=== PATIENT | male | born 1955 | race Caucasian/White ===

== ENCOUNTER → 2019-02-18 10:48 | Outpatient (BNVA) | payer MEDICARE, SELFPAY | PROVIDERS: Family Provider Family Medicine; PCP Family Medicine; Visit Provider Family Medicine | DX: F31.62 Bipolar disorder, current episode mixed, moderate (principal); E78.5 Hyperlipidemia, unspecified | CPT/HCPCS: 80053; 80061; 80164 ==

== ENCOUNTER → 2020-05-20 09:29 | Outpatient (BNVA) | payer MEDICARE, SELFPAY | PROVIDERS: Family Provider Family Medicine; PCP Family Medicine; Visit Provider Psychiatry & Neurology Psychiatry | DX: F43.10 Post-traumatic stress disorder, unspecified (principal); F39 Unspecified mood [affective] disorder; Z79.899 Other long term (current) drug therapy | CPT/HCPCS: 90792 ==

== ENCOUNTER → 2020-05-21 13:08 | Outpatient (BNVA) | payer MEDICARE, SELFPAY | PROVIDERS: Family Provider Family Medicine; PCP Family Medicine; Visit Provider Psychiatry & Neurology Psychiatry | DX: Z79.899 Other long term (current) drug therapy (principal) | CPT/HCPCS: 80053; 80061; 80164; 83036; 84443 ==

== ENCOUNTER → 2020-06-24 12:56 | Outpatient (BNVA) | payer MEDICARE, SELFPAY | PROVIDERS: Family Provider Family Medicine; PCP Family Medicine; Visit Provider Psychiatry & Neurology Psychiatry | DX: F39 Unspecified mood [affective] disorder (principal); F43.10 Post-traumatic stress disorder, unspecified | CPT/HCPCS: 99214 ==

== ENCOUNTER → 2020-08-12 13:16 | Outpatient (BNVA) | payer MEDICARE, SELFPAY | PROVIDERS: Family Provider Family Medicine; PCP Family Medicine; Visit Provider Psychiatry & Neurology Psychiatry | DX: F43.10 Post-traumatic stress disorder, unspecified (principal); F39 Unspecified mood [affective] disorder | CPT/HCPCS: 99214 ==

== ENCOUNTER → 2020-09-23 14:55 | Outpatient (BNVA) | payer MEDICARE, SELFPAY | PROVIDERS: Family Provider Family Medicine; PCP Family Medicine; Visit Provider Psychiatry & Neurology Psychiatry | DX: F31.81 Bipolar II disorder (principal); F43.10 Post-traumatic stress disorder, unspecified; F39 Unspecified mood [affective] disorder | CPT/HCPCS: 99214 ==

== ENCOUNTER → 2020-10-21 10:01 | Outpatient (BNVA) | payer MEDICARE, SELFPAY | PROVIDERS: Family Provider Family Medicine; PCP Family Medicine; Visit Provider Psychiatry & Neurology Psychiatry | DX: F43.10 Post-traumatic stress disorder, unspecified (principal); F39 Unspecified mood [affective] disorder | CPT/HCPCS: 99214 ==

== ENCOUNTER → 2020-12-23 08:33 | Outpatient (BNVA) | payer MEDICARE, SELFPAY | PROVIDERS: Family Provider Family Medicine; PCP Family Medicine; Visit Provider Psychiatry & Neurology Psychiatry | DX: F31.81 Bipolar II disorder (principal); F43.10 Post-traumatic stress disorder, unspecified; F39 Unspecified mood [affective] disorder | CPT/HCPCS: 99214 ==

== ENCOUNTER → 2021-02-25 09:13 | Outpatient (BNVA) | payer MEDICARE, SELFPAY | PROVIDERS: Family Provider Family Medicine; PCP Family Medicine; Visit Provider Psychiatry & Neurology Psychiatry | DX: F31.81 Bipolar II disorder (principal); F31.62 Bipolar disorder, current episode mixed, moderate; F43.10 Post-traumatic stress disorder, unspecified; F39 Unspecified mood [affective] disorder | CPT/HCPCS: 99214 ==

== ENCOUNTER → 2021-04-29 11:17 | Outpatient (BNVA) | payer MEDICARE, SELFPAY | PROVIDERS: Family Provider Family Medicine; PCP Family Medicine; Visit Provider Psychiatry & Neurology Psychiatry | DX: F31.81 Bipolar II disorder (principal); F43.10 Post-traumatic stress disorder, unspecified; F39 Unspecified mood [affective] disorder | CPT/HCPCS: 99214 ==

== ENCOUNTER → 2021-06-07 12:58 | Outpatient (BNVA) | payer MEDICARE, SELFPAY | PROVIDERS: Family Provider Family Medicine; PCP Family Medicine; Visit Provider Podiatrist Foot & Ankle Surgery | DX: Z98.890 Other specified postprocedural states (principal); R61 Generalized hyperhidrosis; F17.200 Nicotine dependence, unspecified, uncomplicated | CPT/HCPCS: 99214 ==

== ENCOUNTER → 2021-06-23 14:40 | Outpatient (BNVA) | payer MEDICARE, SELFPAY | PROVIDERS: Family Provider Family Medicine; PCP Family Medicine; Referring Provider Podiatrist Foot & Ankle Surgery; Visit Provider Internal Medicine | DX: R61 Generalized hyperhidrosis (principal); F41.9 Anxiety disorder, unspecified; R23.2 Flushing; R19.7 Diarrhea, unspecified; F17.290 Nicotine dependence, other tobacco product, uncomplicated | CPT/HCPCS: 99204 ==

== ENCOUNTER → 2021-07-12 11:12 | Outpatient (BNVA) | payer MEDICARE, SELFPAY | PROVIDERS: Family Provider Family Medicine; PCP Family Medicine; Visit Provider Psychiatry & Neurology Psychiatry | DX: F43.10 Post-traumatic stress disorder, unspecified (principal); F39 Unspecified mood [affective] disorder | CPT/HCPCS: 99214 ==

== ENCOUNTER 2021-07-22 16:31 | Emergency (ER) | payer MEDICARE, SELFPAY ==
[2021-07-22 16:43] VITALS: PULSE 82; RESP 16; O2SAT 100; BMI 22.8
--- NOTE | 2021-07-22 16:48 | XRR_ITS ---
PROCEDURE INFORMATION: Exam: XR Chest Exam date and time: 07/22/2021 5:07 PM Age: 66 years old Clinical indication: Other: [place]; Additional info: [place] TECHNIQUE: Imaging protocol: Radiologic exam of the chest. Views: 1 view. COMPARISON: No relevant prior studies available. FINDINGS: Lungs: Unremarkable. No consolidation. Pleural spaces: Unremarkable. No pleural effusion. No pneumothorax. Heart/Mediastinum: Unremarkable. No cardiomegaly. Bones/joints: Healed right distal clavicular fracture. XR/XR chest 1V portable [id number] IMPRESSION: No acute findings.
--- NOTE | 2021-07-22 16:49 | ECG_ITS ---
[facility] Test Date: 2021-07-22 Pat Name: Aiden Ventura Department: Room: Gender: Male Shelver: : 1955 Requested By: Ramona Hanson Order Number: [id number] Allyn MD: Gallo Best M.D. Measurements Intervals [place] Rate: 60 P: 80 SC: 142 QRS: 83 QRSD: 98 T: 74 QT: 423 QTc: 423 Interpretive Statements SINUS RHYTHM No previous ECG available for comparison Electronically Signed On 07-22-2021 20:41:48 CDT by Gallo Best M.D. [id number]
--- NOTE | 2021-07-22 17:08 | ED_ITS ---
HPI - SOB/Dyspnea General: Chief Complaint: Shortness of Breath/Dyspnea Stated Complaint: sob, N/V, Dizzy Time Seen by Provider: 07/22/21 16:48 Source: patient Mode of arrival: ambulatory Limitations: no limitations History of Present Illness: HPI Narrative: 66-year-old male presents emergency room complaining of beingshort of breath was nausea weakness lethargy that started today. He states he had similar symptoms earlier in the week and was seen at [facility] he attributes these symptoms to having touched [place] plant. He was using [place] at the time that was di luted down it was not to concentrate. Today he was near another [place] plant is concerned that his proximity to the plant is causing the symptoms. He did not ingest any parts of the plant at all. He had looked it up on the Internet and seen that even touching the plant could be lethal. He denies chest pain or abdominal pain no fever sweats or chills. He has been nauseous but has not actually vomited today. He does have the labs from the previous ER visit which were unremarkable. His vital signs are all stable at presentation. He has not had any skin irritation or rash. MD elicited complaint: shortness of breath Onset (ago): day(s) Timing: intermittent Severity: mild Exacerbating factors: nothing Relieving factors: nothing Associated symptoms: Deny abdominal pain, chest congestion, chest pain, cough, diaphoresis, dizziness, extremity pain, fever(s), hemoptysis, lightheadedness, myalgias, nausea, orthopnea, palpitations, paresthesias, polydipsia, polyuria, rash, sense of impending doom, syncope or vomiting Treatment prior to arrival: none Review of Systems Const: Reports: fatigue and malaise; Denies: fever(s), chills or diaphoresis ENMT: Denies: throat pain, ear or mastoid pain, nasal discharge or nasal congestion Card: Denies: chest pain, palpitations, lightheadedness, syncope or orthopnea Resp: Reports: dyspnea; Denies: productive cough, non-productive cough, wheezing, hemoptysis or chest congestion GI: Denies: abdominal pain, nausea or vomiting : Denies: flank pain, difficulty urinating, dysuria, urinary frequency or urinary urgency Musc: Denies: neck pain, back pain or extremity pain Skin/Breast: Denies: rash or pruritus Neuro: Denies: headache(s) or dizziness Endo: Denies: polyuria or polydipsia PFSH ED PFSH: Medical History Anxiety Bipolar 1 disorder, mixed, moderate Bipolar 2 disorder History of perforated ear drum left ear surgery x3 Hyperlipidemia Mood disorder Other termite control technician (current) drug therapy [facility] Psychiatric care PTSD (post-traumatic stress disorder) Surgical History History of hand surgery right first finger History of laparoscopic appendectomy History of tonsillectomy Family History Mother CAD (coronary artery disease) Social History Smoking and tobacco status: light tobacco smoker pipe Pipe Details: Occasionally Quit status (tobacco): not considering quitting Second hand smoke exposure: No Alcohol intake: current Alcohol intake frequency: 0-2 Drinks per Day Physical Exam Const: COMMON NORMALS: no acute distress GENERAL APPEARANCE: cooperative and comfortable ORIENTATION/CONSCIOUSNESS: Yes awake, Yes oriented to person, Yes oriented to place and Yes oriented to time HENMT: COMMON NORMALS: normocephalic and atraumatic HEAD & SCALP: normocephalic and atraumatic Eye: COMMON NORMALS: Equal, round and reactive pupils present, EOMs intact bilaterally, conjunctivae normal and no scleral icterus CONJUNCTIVA: Yes conjunctivae normal PUPIL: Yes Equal, round and reactive pupils present Neck/C-Spine: COMMON NORMALS: no JVD Resp: COMMON NORMALS: normal respiratory effort, No retractions, No use of accessory muscles and clear to auscultation bilaterally AUSCULTATION: clear to auscultation bilaterally Cardio: COMMON NORMALS: no JVD, regular rate, regular rhythm and No murmurs present (Cardio) RATE: regular rate RHYTHM: regular rhythm GI: COMMON NORMALS: Soft to palpation and No hepatosplenomegaly present AUSCULTATION: Yes normoactive bowel sounds PALPATION: Yes Soft to palpation, No Tenderness to palpation present (GI), No Guarding due to palpation present (GI) and Yes No hepatosplenomegaly present Extremity: COMMON NORMALS: normal to inspection, capillary refill normal, no clubbing, cyanosis or edema, no calf tenderness and no pedal edema Neuro: SENSORIUM/ORIENTATION: Yes oriented to person, Yes oriented to place and Yes oriented to time Skin: COMMON NORMALS: no rashes or lesions noted GENERAL SKIN EXAM: no rashes or lesions noted Course Vital Signs: Vital signs: Vital Signs Pulse Rate 82 07/22/21 16:43 Respiratory Rate 16 07/22/21 16:43 Pulse Oximetry 100 07/22/21 16:43 MDM - SOB/Dyspnea Medical Decision Making Labs and imaging reviewed. No significant abnormalities. Discussed the patient while you can get a skin reaction to [place] from touching it requires ingestion to get a systemic effect. His exposure to [place] was low. He has not had any exposure is no emergent condition at this point if he has any worsening or changes symptoms can return to the emergency room otherwise if his symptoms persist would follow-up with primary care. Medical Records I reviewed the patient's medical records. Lab Data I reviewed the patient's lab results. : 07/22/21 17:30 07/22/21 17:30 Labs/Radiology: Radiology Impressions Chest X-Ray 07/22/21 16:48 IMPRESSION: No acute findings. Laboratory Results WBC 7.9 10^3/uL (4.0-10.0) 07/22/21 17:30 RBC 5.14 10^6/uL (4.1-5.3) 07/22/21 17:30 Hgb 15.4 g/dL (11.7-16.6) 07/22/21 17:30 Hct 44.6 % (42.0-52.0) 07/22/21 17:30 MCV 86.8 fl (80-94) 07/22/21 17: MCH 30.0 pg (28.0-34.0) 07/22/21 17: MCHC 34.5 g/dL (30.0-36.0) 07/22/21 17:30 RDW 13.8 % (12.1-15.1) 07/22/21 17:30 Plt Count 228 10^3/cmm (130-400) 07/22/21 17: MPV 10.1 fL (7.4-10.4) 07/22/21 17: Neut % (Auto) 57.5 % 07/22/21 17: Lymph % (Auto) 32.2 % 07/22/21 17: [place] % (Auto) 8.6 % 07/22/21 17: Eos % (Auto) 1.0 % 07/22/21 17: Baso % (Auto) 0.3 % 07/22/21: Neut # (Auto) 4.53 10^3/uL (1.8-7.7) 07/22/21: Lymph # (Auto) 2.5 10^3/uL (0.8-4.8) 07/22/21: [place] # (Auto) 0.7 10^3/uL (0.2-0.9) 07/22/21: Eos # (Auto) 0.1 10^3/uL (0.0-0.8) 07/22/21: Baso # (Auto) 0.0 10^3/uL (0.0-0.1) 07/22/21: Nucleated RBC % (auto) 0 % 07/22/21: Nucleated RBCs # 0.0 /100WBC 07/22/21: Sodium 139 mmol/L (136-145) 07/22/21: Potassium 3.7 mmol/L (3.5-5.1) 07/22/21: Chloride 101 mmol/L (98-107) 07/22/21: Carbon Dioxide 21 mmol/L (22-29) L 07/22/21: Anion Gap 20.7 (5-19) H 07/22/21: BUN 15 mg/dL (8-23) 07/22/21: Creatinine 0.9 mg/dL (0.7-1.2) 07/22/21: GFR Calculation 83.9 mL/min (90-130) L 07/22/21: Glucose 94 mg/dL (65-115) 07/22/21: Calculated Osmolality 289 mOsm/kg (285-295) 07/22/21: Calcium 10.0 mg/dL (8.5-10.5) 07/22/21 17:30 Total Bilirubin 0.6 mg/dL (0.15-1.2) 07/22/21 17:30 AST 19 U/L (0-40) 07/22/21 17:30 ALT 23 U/L (0-41) 07/22/21 17:30 Alkaline Phosphatase 91 IU/L (40-130) 07/22/21 17:30 Total Protein 7.3 g/dL (6.6-8.7) 07/22/21 17:30 Albumin 4.7 g/dL (3.5-5.2) 07/22/21 17:30 Globulin 2.6 g/dL (1.3-4.6) 07/22/21 17:30 Discharge Plan Discharge Patient Disposition: Home Condition: Stable Prescriptions: No Action ibuprofen 200 mg capsule 200 mg PO Q6H PRN0RF niacin 500 mg tablet 500 mg PO DAILY 0RF B-complex with vitamin C Tablet 1 tab PO DAILY 0RF acetaminophen [Tylenol] 325 mg capsule 325 mg PO ONCE PRN0RF magnesium 200 mg tablet 400 mg PO DAILY 0RF lamotrigine 100 mg tablet 50 mg PO BID 90 Days Qty: 90 3RF lamotrigine 100 mg tablet 50 mg PO BID 30 Days Qty: 30 3RF benztropine 0.5 mg tablet 0.5 mg PO DAILY 30 Days Qty: 30 3RF [place] Senior 500-300-250 mcg tablet PO 0RF Hebrew ginseng root extract 200 mg capsule 200 mg PO DAILY 0RF buspirone 10 mg tablet 20 mg PO BID Qty: 120 1RF trazodone 50 mg tablet 50 mg PO .qhs 90 Days Qty: 90 3RF Rx Instructions: may take a-half tab or whole tab po qhs Discharge Orders: Discharge ED (Routine); Ordered 07/22/21 Ordered By: hPil Acevedo Discharge Diet: As Directed Discharge Activity: Increase activity as tolerated Patient Instructions: Opioid Safety Activity Restrictions/Additional Instructions: Labs and imaging were normal. If your symptoms persist follow up with your primary care physician. Coding Level of Care Code ED Paint Formulator for Valentine Fwd Exam Comprehensive
[2021-07-22 17:50] LABS: Basophils % 0.3 %; Eosinophils # 0.1 10^3/uL (0.0-0.8); Hematocrit 44.6 % (42.0-52.0); Hemoglobin 15.4 g/dL (11.7-16.6); Lymphocytes # 2.5 10^3/uL (0.8-4.8); Lymphocytes % 32.2 %; Mean Corpuscular HGB Conc 34.5 g/dL (30.0-36.0); Mean Corpuscular Volume 86.8 fl (80-94); Mean Platelet Volume 10.1 fL (7.4-10.4); Monocytes # 0.7 10^3/uL (0.2-0.9); Monocytes % 8.6 %; Neutrophils # 4.53 10^3/uL (1.8-7.7); Neutrophils % 57.5 %; Nucleated Red Blood Cells % 0 %; Platelet Count 228 10^3/cmm (130-400); Red Blood Count 5.14 10^6/uL (4.1-5.3); Red Cell Distribution Width 13.8 % (12.1-15.1); White Blood Count 7.9 10^3/uL (4.0-10.0)
[2021-07-22 18:06] LABS: Anion Gap 20.7 (5-19); Blood Urea Nitrogen 15 mg/dL (8-23); Carbon Dioxide 21 mmol/L (22-29); Chloride 101 mmol/L (98-107); Creatinine Clr Calc Pharmacy 75.8396; Glomerular Filtration Rate 83.9 mL/min (90-130); Potassium 3.7 mmol/L (3.5-5.1); Sodium 139 mmol/L (136-145)
[2021-07-22 18:07] LABS: Alanine Aminotransferase 23 U/L (0-41); Albumin Level 4.7 g/dL (3.5-5.2); Alkaline Phosphatase 91 IU/L (40-130); Aspartate Amino Transferase 19 U/L (0-40); Globulin 2.6 g/dL (1.3-4.6); Glucose 94 mg/dL (65-115); Osmolality Calculated 289 mOsm/kg (285-295); Total Bilirubin 0.6 mg/dL (0.15-1.2); Total Protein 7.3 g/dL (6.6-8.7)
== END 2021-07-22 18:52 | disposition home or self-care (01) ==
PROVIDERS: Emergency Medicine; Emergency Provider Family Medicine
DX: R06.02 Shortness of breath (principal)
CPT/HCPCS: 71045; 80053; 85025; 93005; 99285

== ENCOUNTER → 2021-07-29 08:49 | Outpatient (BNVA) | payer MEDICARE, SELFPAY | PROVIDERS: Visit Provider Internal Medicine | DX: F41.9 Anxiety disorder, unspecified (principal); R19.7 Diarrhea, unspecified; R23.2 Flushing; R61 Generalized hyperhidrosis | CPT/HCPCS: 84305; 84402; 84403; 84439; 84443; 84480 ==

== ENCOUNTER → 2021-08-03 08:56 | Outpatient (BNVA) | payer MEDICARE, SELFPAY | PROVIDERS: Visit Provider Internal Medicine | DX: F41.9 Anxiety disorder, unspecified (principal); R19.7 Diarrhea, unspecified; R23.2 Flushing; R61 Generalized hyperhidrosis | CPT/HCPCS: 82384; 82530; 82570; 83497 ==

== ENCOUNTER → 2021-08-22 13:55 | Outpatient (BNVA) | payer MEDICARE, SELFPAY | PROVIDERS: Visit Provider Podiatrist Foot & Ankle Surgery | DX: M79.671 Pain in right foot (principal) | CPT/HCPCS: 99214 ==

== ENCOUNTER → 2022-04-20 11:36 | Outpatient (BNVA) | payer MEDICARE, SELFPAY | PROVIDERS: PCP Family Medicine; Visit Provider Psychiatry & Neurology Psychiatry | DX: Z79.899 Other long term (current) drug therapy (principal); F43.10 Post-traumatic stress disorder, unspecified; F39 Unspecified mood [affective] disorder | CPT/HCPCS: 80053; 83036; 84443 ==

== ENCOUNTER → 2022-07-19 11:24 | Outpatient (BNVA) | payer MEDICARE, SELFPAY | PROVIDERS: PCP Family Medicine; Visit Provider Nurse Practitioner Family | DX: L74.510 Primary focal hyperhidrosis, axilla (principal); L74.513 Primary focal hyperhidrosis, soles; D22.5 Melanocytic nevi of trunk; L85.3 Xerosis cutis | CPT/HCPCS: 99214 ==

== ENCOUNTER → 2022-08-30 13:35 | Outpatient (BNVA) | payer MEDICARE, SELFPAY | PROVIDERS: PCP Family Medicine; Visit Provider Nurse Practitioner Family | DX: L74.510 Primary focal hyperhidrosis, axilla (principal); L74.513 Primary focal hyperhidrosis, soles; L74.519 Primary focal hyperhidrosis, unspecified; L81.4 Other melanin hyperpigmentation; D22.5 Melanocytic nevi of trunk; L85.3 Xerosis cutis | CPT/HCPCS: 99214 ==

== ENCOUNTER → 2022-12-22 13:16 | Outpatient (BNVA) | payer MEDICARE, SELFPAY | PROVIDERS: PCP Nurse Practitioner; Visit Provider Nurse Practitioner | DX: R63.4 Abnormal weight loss (principal) | CPT/HCPCS: 71046 ==

== ENCOUNTER → 2023-01-12 14:57 | Outpatient (BNVA) | payer MEDICARE, SELFPAY | PROVIDERS: PCP Nurse Practitioner; Visit Provider Specialist | DX: G47.52 REM sleep behavior disorder (principal) | CPT/HCPCS: 99204 ==

== ENCOUNTER → 2023-05-29 08:01 | Outpatient (BNVA) | payer MEDICARE, SELFPAY | PROVIDERS: PCP Nurse Practitioner; Visit Provider Specialist | DX: R41.3 Other amnesia (principal); R29.90 Unspecified symptoms and signs involving the nervous system; G47.52 REM sleep behavior disorder; F31.62 Bipolar disorder, current episode mixed, moderate; R61 Generalized hyperhidrosis | CPT/HCPCS: 96116; 99214 ==

== ENCOUNTER → 2023-09-28 08:02 | Outpatient (BNVA) | payer MEDICARE, SELFPAY | PROVIDERS: PCP Nurse Practitioner; Visit Provider Specialist | DX: R29.90 Unspecified symptoms and signs involving the nervous system (principal); G47.52 REM sleep behavior disorder; F31.62 Bipolar disorder, current episode mixed, moderate; G31.84 Mild cognitive impairment of uncertain or unknown etiology; R61 Generalized hyperhidrosis | CPT/HCPCS: 99213 ==

== ENCOUNTER → 2024-09-30 07:48 | Outpatient (BNVA) | payer MEDICARE, SELFPAY | PROVIDERS: PCP Nurse Practitioner; Visit Provider Specialist | DX: G47.52 REM sleep behavior disorder (principal); G31.84 Mild cognitive impairment of uncertain or unknown etiology; F31.62 Bipolar disorder, current episode mixed, moderate; R61 Generalized hyperhidrosis | CPT/HCPCS: 99214 ==